=== PATIENT | female | born 1955 | race African-American/Black ===

== ENCOUNTER 2020-07-08 23:31 | Emergency (ER) | payer MEDICARE ==
[~2020-07-08] VITALS: Ht 162.6 cm; Wt 66.0 kg
[2020-07-08 23:34] VITALS: BP 166/103
[2020-07-08] MEDS ORDERED: OXYMETAZOLINE HCL NASAL SPRAY 15ML BOTHNSTRLS ONE (23:45)
[2020-07-09] MEDS ORDERED: TRANEXAMIC ACID 1,000 MG/10 ML TP ONE (00:30)
[2020-07-09] MEDS ORDERED: HYDROCODONE/ACETAMINOPHEN 5/325MG TABLET PO NR (03:15)
[2020-07-09] MEDS ORDERED: AMOXICILLIN/POTASSIUM CLAVULANATE 875/125MG TAB PO NR (03:15)
== END 2020-07-09 03:38 | disposition home or self-care (01) ==
LOC: ER 23:31
DX: R04.0 Epistaxis (principal); I10 Essential (primary) hypertension; E11.9 Type 2 diabetes mellitus without complications; Z98.890 Other specified postprocedural states
CPT/HCPCS: 99284

== ENCOUNTER 2020-07-10 05:52 | Emergency (ER) | payer MEDICARE ==
[~2020-07-10] VITALS: Ht 162.6 cm; Wt 64.0 kg
[2020-07-10 06:57] VITALS: BP 178/82
[2020-07-10] MEDS ORDERED: ACETAMINOPHEN 325MG TABLET PO ONE (07:00)
== END 2020-07-10 07:10 | disposition home or self-care (01) ==
LOC: ER 05:52
DX: R04.0 Epistaxis (principal); I10 Essential (primary) hypertension; Z98.890 Other specified postprocedural states
CPT/HCPCS: 99282

== ENCOUNTER 2021-04-26 14:32 | Emergency (ER) | payer MEDICARE, OTHER ==
[~2021-04-26] VITALS: Ht 162.6 cm; Wt 57.0 kg
[2021-04-26] MEDS ORDERED: SODIUM CHLORIDE 0.9% 1,000 ML IV ONE ×2 (15:45→17:30)
[2021-04-26 15:55] LABS: BASOPHILS % 0.5 % (0.0-2.0); EOSINOPHILS % 1.8 % (0.0-5.0); HEMATOCRIT. 41.4 % (36.0-48.0); HEMOGLOBIN. 14.4 g/dL (12.0-16.0); LYMPHOCYTES % 19.8 % (20.0-50.0); MEAN CORPUSCULAR HEMOGLOBIN 26.2 pg (28.0-32.0); MEAN CORPUSCULAR VOLUME 75.2 fL (81.0-99.0); MEAN PLATELET VOLUME 8.6 fl (7.4-10.4); MONOCYTES % 5.9 % (2.0-8.0); PLATELET 387 x1000/uL (130-400); RED CELL DISTRIBUTION WIDTH 14.5 % (11.6-14.6)
[2021-04-26 15:59] LABS: CHLORIDE 92 mEq/L (98-107)
[2021-04-26 16:06] LABS: BETA HYDROXYBUTYRATE 2.7 mMol/L (0.0-0.3)
[2021-04-26] MEDS ORDERED: INSULIN REGULAR (HUMULIN R) 300UNITS/3ML VIAL IV NR (17:30)
[2021-04-26] MEDS ORDERED: INSULIN REGULAR (HUMULIN R) 300UNITS/3ML VIAL IV ONE (20:15)
[2021-04-26] MEDS ORDERED: GLIPIZIDE 5MG TABLET PO SCH (20:15)
[2021-04-26] MEDS ORDERED: GLIP5TAB12 MT (20:29)
[2021-04-26 20:40] VITALS: BP 139/82
== END 2021-04-26 20:48 | disposition home or self-care (01) ==
LOC: ER 14:32
DX: E11.65 Type 2 diabetes mellitus with hyperglycemia (principal); E78.00 Pure hypercholesterolemia, unspecified; I10 Essential (primary) hypertension; F17.290 Nicotine dependence, other tobacco product, uncomplicated
CPT/HCPCS: 36415; 80053; 82010; 82962; 83690; 85025; 93005; 96374; 96376; 99285; 99406; J1815